=== PATIENT | female | born 1995 | race Caucasian/White ===

== ENCOUNTER 2020-04-20 17:12 | Outpatient (CLI) | payer OTHER | END 2020-04-21 09:56 | disposition home or self-care (01) | LOC: OBS/DEL 17:12 | PROVIDERS: ATTEND Obstetrics & Gynecology | DX: O26.892 Other specified pregnancy related conditions, second trimester (principal); R10.2 Pelvic and perineal pain ==

== ENCOUNTER 2020-07-28 11:45 | Inpatient (IN) | payer OTHER ==
[~2020-07-28] VITALS: Ht 154.9 cm; Wt 78.5 kg
[2020-08-11] MEDS ORDERED: PRENATAL TABLE1 EAC1 PO (07:11)
== END 2020-08-13 14:05 | disposition home or self-care (01) | DRG 807 ==
LOC: OB/GYN 08-09 11:45 → LDR 08-11 05:50 → OB/GYN 08-11 18:47
PROVIDERS: ADMIT Obstetrics & Gynecology; ATTEND Obstetrics & Gynecology
PROC: 10E0XZZ Delivery of Products of Conception, External Approach (ICD-10-PCS; principal; 2020-08-11)
PROC: 0KQM0ZZ Repair Perineum Muscle, Open Approach (ICD-10-PCS; 2020-08-11)
PROC: 4A1HXFZ Monitoring of Products of Conception, Cardiac Rhythm, External Approach (ICD-10-PCS; 2020-08-11)
DX: O70.1 Second degree perineal laceration during delivery (principal); O48.0 Post-term pregnancy; O99.824 Streptococcus B carrier state complicating childbirth; Z3A.40 40 weeks gestation of pregnancy; Z37.0 Single live birth; Z20.822 Contact with and (suspected) exposure to COVID-19